=== PATIENT | male | born 1995 | race Caucasian/White ===

== ENCOUNTER 2017-04-01 19:19 | Emergency (ER) | payer OTHER ==
[~2017-04-01] VITALS: Ht 190.5 cm; Wt 74.8 kg
== END 2017-04-01 21:24 | disposition home or self-care (01) ==
LOC: ED 19:19
PROC: 0HQFXZZ Repair Right Hand Skin, External Approach (ICD-10-PCS; principal; 2017-04-01)
DX: S61.011A Laceration without foreign body of right thumb without damage to nail, initial encounter (principal); J45.909 Unspecified asthma, uncomplicated; Z87.891 Personal history of nicotine dependence; W45.8XXA Other foreign body or object entering through skin, initial encounter; Y92.69 Other specified industrial and construction area as the place of occurrence of the external cause; Y99.0 Civilian activity done for income or pay
CPT/HCPCS: 12001; 99282

== ENCOUNTER 2019-02-05 17:48 | Emergency (ER) | payer OTHER ==
[~2019-02-05] VITALS: Ht 190.5 cm; Wt 76.2 kg
== END 2019-02-05 19:34 | disposition home or self-care (01) ==
LOC: ED 17:48
DX: S86.012A Strain of left Achilles tendon, initial encounter (principal); S80.02XA Contusion of left knee, initial encounter; Z87.891 Personal history of nicotine dependence; V29.9XXA Motorcycle rider (driver) (passenger) injured in unspecified traffic accident, initial encounter
CPT/HCPCS: 73560; 99283

== ENCOUNTER 2020-03-15 01:56 | Emergency (ER) | payer BC ==
[~2020-03-15] VITALS: Ht 190.5 cm; Wt 81.7 kg
[2020-03-15] MEDS ORDERED: VENTOLIN HFA18 GM INH (02:24)
[2020-03-15] MEDS ORDERED: ACYCLOVIR800 MG PO (03:32)
== END 2020-03-15 03:56 | disposition home or self-care (01) ==
LOC: ED 01:56
DX: L98.9 Disorder of the skin and subcutaneous tissue, unspecified (principal); J45.909 Unspecified asthma, uncomplicated; F17.200 Nicotine dependence, unspecified, uncomplicated
CPT/HCPCS: 81001; 87529; 99283

== ENCOUNTER 2024-06-22 15:13 | Emergency (ER) | payer OTHER ==
[~2024-06-22] VITALS: Ht 190.5 cm; Wt 80.3 kg
[~2024-06-22 15:13] MED LIST: ACYCLOVIR800 MG PO; VENTOLIN HFA18 GM INH
[2024-06-22 20:05] VITALS: BP 130/59
== END 2024-06-22 20:05 | disposition home or self-care (01) ==
LOC: ED 15:13
DX: K40.90 Unilateral inguinal hernia, without obstruction or gangrene, not specified as recurrent (principal); F17.200 Nicotine dependence, unspecified, uncomplicated
CPT/HCPCS: 99283

== ENCOUNTER 2024-10-12 07:47 | Day surgery (SDC) | payer OTHER ==
[2024-10-08 08:41] VITALS: BP 120/72
[~2024-10-12] VITALS: Ht 190.5 cm; Wt 81.8 kg
[~2024-10-12 07:47] MED LIST changes: +CEFAZOLIN SODIUM 2 GM/20 ML SYR IV SCH; +HEParin SOD (PORCINE) 5,000 UNIT/ML SDV SUB-Q SCH; +IBLOOD GLUCOSE TEST STRIP 1 EA TEST VI PRN; +LACTATED RINGER'S 1,000 ML IV SCH; +LIDOCAINE HCL 1% 5 ML SDV INJ ONE
[2024-10-12 08:05] VITALS: BP 131/80
[2024-10-12] MEDS ORDERED: MIDAZOLAM HCL 2 MG/2 ML VIAL ONE (08:49)
[2024-10-12] MEDS ORDERED: propofoL 200 MG/20 ML VIAL ONE (08:49)
[2024-10-12] MEDS ORDERED: Ropivacaine HCl 0.5% 30 ML VIAL ONE (08:49)
[2024-10-12] MEDS ORDERED: ondansetron HCL 4 MG/2 ML VIAL ONE (08:49)
[2024-10-12] MEDS ORDERED: ACETAMINOPHEN 1,000 MG/100 ML VIAL ONE (08:49)
[2024-10-12] MEDS ORDERED: DEXAMETHASONE SOD PHOS 4 MG/ML VIAL ONE (08:49)
[2024-10-12] MEDS ORDERED: LIDOCAINE HCL 2% 20 MG/ML VIAL INJ ONE (08:50)
[2024-10-12] MEDS ORDERED: fentaNYL citrate 100 MCG/2 ML VIAL ONE (08:50)
[2024-10-12] MEDS ORDERED: SODIUM CHLORIDE 0.9% 20 ML IV ONE (08:52)
[2024-10-12] MEDS ORDERED: KETOROLAC TROMETHAMINE 30 MG/ML VIAL ONE (08:55)
[2024-10-12] MEDS ORDERED: PROCHLORPERAZINE EDISYLATE 10 MG/2 ML VIAL IV PRN (09:45)
[2024-10-12] MEDS ORDERED: IBLOOD GLUCOSE TEST STRIP 1 EA TEST VI PRN (09:45)
[2024-10-12] MEDS ORDERED: ondansetron HCL 4 MG/2 ML VIAL IV PRN (09:45)
[2024-10-12] MEDS ORDERED: NALOXONE HCL 0.4 MG SYR IV PRN ×2 (09:45→11:30)
[2024-10-12] MEDS ORDERED: fentaNYL citrate 50 MCG/ML SDV IV PRN (09:45)
[2024-10-12] MEDS ORDERED: HYDROmorphone HCL 1 MG/ML SYR IV PRN (09:45)
[2024-10-12] MEDS ORDERED: droPERidol 5 MG/2 ML VIAL IV PRN (09:45)
[2024-10-12] MEDS ORDERED: LACTATED RINGER'S 1,000 ML IV ONE (10:16)
--- NOTE | 2024-10-12 11:24 | NUR ---
10/12/24 1124 Rita Soliz 1106-PT ARRIVES TO PACU VIA STRETCHER, PT NOT RESPONSIVE TO NOXIOUS STIMULI, OPA IN PLACE, VSS ON 6L VIA MASK, RR EVEN AND UNLABORED. 1120-PT AWAKENS TO TACTILE AND VERBAL STIMULI, OPA REMOVED AND TITRATED TO RA, VS REMAIN STABLE. PT FALLS BACK TO SLEEP EASILY, RR EVEN AND UNLABORED.
[2024-10-12] MEDS ORDERED: OXYCODONE/APAP 7.5/325 TAB PO PRN (11:30)
[2024-10-12] MEDS ORDERED: ACETAMINOPHEN 500 MG TAB PO PRN (11:30)
[2024-10-12] MEDS ORDERED: IBUPROFEN 600 MG TAB PO PRN (11:30)
[2024-10-12] MEDS ORDERED: LACTATED RINGER'S 1,000 ML IV SCH (11:30)
[2024-10-12] MEDS ORDERED: IBUPROFEN600 MG PO (11:33)
[2024-10-12] MEDS ORDERED: OXYCODON-ACETA1 EAC2 PO (11:34)
[2024-10-12] MEDS ORDERED: ACETAMINOPHEN500 MG PO (11:34)
[2024-10-12 11:42] VITALS: BP 136/81
--- NOTE | 2024-10-12 11:42 | NUR ---
PT ARRIVED BACK TO DS ON RA, AAOX3, AND ANSWERING QUESTIONS APPROPRIATELY. REPORT RECEIVED FROM [facility] AND SURGICAL SITE VISUALIZED WITH THE [facility] WELL. NOTED SURGICAL DRSG TO R MONS PUBIS/GROIN AREA. DRSG HAS SMALL AMT OF SHADOWING IN CENTER OF DRSG AND SMALL AMT OF SANGUINOUS DRAINAGE NEAR MIDDLE OF SUPERIOR BORDER OF DRSG. DRSG REMAINS FIRMLY INTACT. PT DENIES NAUSEA WHEN ASKED. PT REPORTS TENDERNESS AT SURGICAL SITE. WHEN ASKED TO RATE HIS PAIN, HE RATES IT 1/10. PT REPORTS THIS TO BE TOLERABLE AND DECLINES NEED FOR FURTHER PAIN MANAGEMENT INTERVENTION AT THIS TIME. IV SITE ASSESSED. VS TAKEN. PT PROVIDED W/APPLESAUCE, SHERITA CRACKERS, AND ICE WATER. ALL QUESTIONS ANSWERED. BED IN LOW POSITION, WHEELS LOCKED, BILAT RAILS IN PLACE FOR SAFETY. CALL LIGHT WITHIN PT REACH. HOB ELEVATED TO APPROX 60 DEGREES AT PT REQUEST TO FACILITATE EATING AND DRINKING.
[2024-10-12 12:42] VITALS: BP 128/67
--- NOTE | 2024-10-12 12:42 | NUR ---
INTO PTS ROOM FOR ROUTINE REASSESSMENT. VS TAKEN. IV SITE ASSESSED. PT CONT TO DENY NAUSEA WHEN ASKED. PT ATE ALL SNACKS PROVIDED AND DRANK ALL HIS ICE WATER. PT REPORTS NO INCREASE IN PAIN AND CONT TO REPORT PAIN AT 1/10 AND DESCRIBES PAIN "A LITTLE TENDER". PT DENIES NEED FOR ANY PAIN MEDICATION OR PAIN INTERVENTIONS AT THIS TIME. SURGICAL SITE OBSERVED AND NOTED SLIGHT INCREASE IN SHADOWING IN CENTER OF DRESSING. AREA IS APPROX THE SIZE OF A DIME. DRSG REMAINS FIRMLY INTACT. DISCUSSED WITH PT USING HIS HAND TO PROVIDE SUPPORT TO SURGICAL SITE WITH POSITION CHANGES AND TRANSFERS. PT VERBALIZED AND DEMONSTRATED UNDERSTANDING. ALL QUESTIONS ANSWERED. PT AGREEABLE TO USE RESTROOMA ND ATTEMPT VOIDING. IV SL'D. PT ASSISTED TO SITTING POSITION ON EOB AND THEN AMBULATED DOWN MARTINEZ TO RESTROOM WITH RN SUPERVISION FOR SAFETY. GAIT APPEARS STEADY. PT DENIES ANY INCREASE IN PAIN WITH AMBULATION OR POSITION CHANGE.
--- NOTE | 2024-10-12 12:50 | NUR ---
PT BACK TO ROOM AFTER VOIDING APPROX 250 ML OF CLR, YELLOW URINE. SURGICAL SITE OBSERVED POST-AMBULATION AND W/O ANY INCREASED SHADOWING/DRAINAGE OBSERVED ON BANDAGE. PT DENIES ANY INCREASED PAIN. PT SITTING ON EOB WITH PERSONAL BELONGINGS AND CALL LIGHT WITHIN REACH. PT DRESSING FOR DC.
--- NOTE | 2024-10-12 12:55 | NUR ---
[facility] CALLED. THEY REPORT THEY ARE ON THEIR WAY.
--- NOTE | 2024-10-12 13:05 | NUR ---
1300-INTO PTS ROOM FOR DC EDUCATION. PT PROVIDED VERBAL AND WRITTEN INSTRUCTIONS. ALL QUESTIONS ANSWERED. PT AWARE HE NEEDS TO CALL AND SCHEDULE HIS POST-OP APPT ON TUESDAY MORNING WITH [facility] OFFICE FOR 4 WEEKS +/-. PT VERBALIZED UNDERSTANDING. 1305-IV REMOVED. TIP APPEARS INTACT. PRESSURE DRSG APPLIED W/GAUZE AND COBAN.
--- NOTE | 2024-10-12 13:10 | NUR ---
PT DISCHARGED FROM DS VIA WC TO PASSENGER SIDE OF [id number] VEHICLE. ALL PERSONAL BELONINGS TAKEN WITH PT.
[2024-10-12] MEDS ORDERED: SEVOFLURANE 250 ML BTL INH ONE (16:16)
--- NOTE | 2024-10-13 12:34 | OR ---
[facility] [address] [place], [place] [address] Signed DATE OF OPERATION: 10/12/2024 SURGEON: Roman Gibbons MD PREOPERATIVE DIAGNOSIS: Right inguinal hernia. POSTOPERATIVE DIAGNOSIS: Right indirect inguinal hernia with minimal ring redundancy. PROCEDURE: Repair of right inguinal hernia including high excision and ligation of hernia sac and plication of internal ring and floor without implantation of mesh. ANESTHESIA: General LMA, Yunior Beatty CRNA; preoperative ilioinguinal nerve block and local 0.25% Marcaine with epinephrine 7 mL. 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 He was confirmed to have a right groin mass consistent with hernia after evaluation in the emergency room on June 22, 2024. He has had no abdominal pain, urinary outlet obstructive symptoms, chronic cough or constipation. He has a reducible inguinal hernia which was easily identified. He is admitted at this time to undergo repair of this work-related hernia, understands the risk of bleeding, infection, and recurrence. FINDINGS: Found was an indirect hernia sac that was moderate in size. There was laxity of the internal ring. He did not have disruption of the floor itself. Appropriate operation included high ligation and excision of the sac with plication of the internal ring and additionally the floor itself without the implantation of mesh. DESCRIPTION OF PROCEDURE: The patient was brought to the operating room, given a general LMA type anesthetic. He had been given an ilioinguinal nerve block preoperatively. The lower abdomen was clipped and prepared with a chlorhexidine solution and draped sterilely. A small incision was made cephalad to the right pubic tubercle and dissection carried through the subcutaneous tissue with electrocautery. The external oblique was identified and Electronically Signed By: ROMAN GIBBONS MD 10/13/24 1234 PATIENT NAME: LIZETTE HARDEN OPERATIVE REPORT DATE OF : [birth year] REPORT #: [id number] PHYSICIAN: ROMAN GIBBONS MD PCP: GIOVANNY RODRIGUEZ MD REPORT IS CONFIDENTIAL AND NOT TO BE RELEASED WITHOUT AUTHORIZATION [facility] [address], [place] [address] Signed incised along its fibers revealing the underlying cord. The external oblique fibers were and secured with hemostats and the ilioinguinal nerve branch freed from the cremasteric muscle fibers with sharp dissection and reflected around the external oblique. The cord was then mobilized from the floor. The cord itself had a bulky appearance proximally and there was no sign of direct defect in the floor of the canal, though some weakening of the internal ring was noted. The hernia sac was dissected free from the cord after circumferential transection of the cremasteric muscle fibers with electrocautery. Meticulous care was maintained to free the sac from the cord without causing harm to the cord structures proper. It appeared that the hernia sac somewhat enveloped the cord. Once the hernia sac was freed from the cord, it was incised and opened and internal inspection showed no sign of hollow viscus or other issue. The base of the hernia sac was secured with 2-0 silk suture doubly applied amputating the redundant hernia sac. Examination of the floor showed to be largely intact, although there was laxity at the internal ring. The repair was more appropriately performed by primary repair rather than implantation of mesh. 2-0 silk suture was used to secure the shelving edge of Poupart's ligament to the tendon of the transversus abdominis. Closure extended from the pubic tubercle up to the internal ring, maintaining a reasonable amount of space between the ring and the cord itself. 7 mL of 0.25% Marcaine with epinephrine was injected locally. The cord was replaced in the canal as was the ilioinguinal nerve. The external oblique fascia was somewhat attenuated and edematous and was reapproximated in the lateral aspect with 2-0 Vicryl. Jose's layer was reapproximated with interrupted 2-0 Vicryl. The skin was closed with a running subcuticular 3-0 Vicryl. Steri-Strips were applied as was the Acticoat dressing. The patient was ultimately extubated and transferred to recovery room in good condition having suffered no complications. Sponge, needle, and instrument counts were reported as correct x3. Roman Gibbons MD /MODL /[id number] cc: Giovanny Rodriguez MD Electronically Signed By: ROMAN GIBBONS MD 10/13/24 1234 PATIENT NAME: LIZETTE HARDEN OPERATIVE REPORT DATE OF : [birth year] REPORT #: [id number] PHYSICIAN: ROMAN GIBBONS MD PCP: GIOVANNY RODRIGUEZ MD REPORT IS CONFIDENTIAL AND NOT TO BE RELEASED WITHOUT AUTHORIZATION [facility] [address] [facility] [place], [place] [address] Signed Copies: GIOVANNY RODRIGUEZ MD ~ Electronically Signed By: ROMAN GIBBONS MD 10/13/24 1234 PATIENT NAME: LIZETTE HARDEN OPERATIVE REPORT DATE OF : [birth year] REPORT #: [id number] PHYSICIAN: ROMAN GIBBONS MD PCP: GIOVANNY RODRIGUEZ MD REPORT IS CONFIDENTIAL AND NOT TO BE RELEASED WITHOUT AUTHORIZATION
--- NOTE | 2024-10-16 15:24 | PATH ---
[facility] [address] [place], [place] [address] Signed SPECIMEN(S): A RIGHT INDIRECT HERNIA SAC SPECIMEN(S): B RIGHT CORD LIPOMA SPECIMEN SOURCE: A. RIGHT INDIRECT HERNIA SAC B. RIGHT CORD LIPOMA CLINICAL HISTORY: Right inguinal hernia. FINAL PATHOLOGIC DIAGNOSIS: A. Right indirect hernia sac: - Benign soft tissue consistent with clinical hernia sac. - Negative for atypical features. B. 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 JVR:clv MICROSCOPIC EXAMINATION: Histologic sections of all submitted blocks are examined by light microscopy. These findings, together with the gross examination, support the pathologic diagnosis. GROSS DESCRIPTION: A. The specimen, labeled and designated "Cristhian, Edison, " and designated on the requisition "right indirect hernia sac," is received in formalin and consists of 4.6 x 2.1 x 0.8 cm membranous tissue fragment. One surface is violaceous smooth and glistening. The opposite is pink-red and slightly roughened. Specimen is sectioned and client representative sections are submitted in cassette A1. B. The specimen, labeled and designated "Cristhian, J, " and designated on the requisition "right cord lipoma," is received in formalin and consists of a four gram portion of yellow-sidhu adipose tissue that is 5.2 x 2.2 x 0.9 cm. The specimen is surfaced by a transparent delicate membranous tissue. The tissue is inked and serially sectioned to reveal a yellow homogeneous cut surface. Office Engineer sections are submitted cassette B1. FB (under the direct supervision of a pathologist) The Gross Description was prepared using a voice recognition system. The report was reviewed for accuracy; however, sound-alike word errors, addition and/or PATIENT NAME: LIZETTE HARDEN PATHOLOGY DATE OF : [birth year] REPORT #: [id number] PHYSICIAN: LUI RAMSAY PCP: COLE MARCIAL MD REPORT IS CONFIDENTIAL AND NOT TO BE RELEASED WITHOUT AUTHORIZATION [facility] [address] [facility] [place], [place] [address] Signed deletions may occur. If there is any question about this report, please contact Client Services. PERFORMING LABORATORY: Technical component was performed by [facility], [address] [place] [address] (CLIA# [id number]). Professional interpretation was performed by [facility], [address] [place] [id number] (CLIA#: [id number]). Diagnostician: Gabe Quick MD Pathologist Electronically Signed 10/16/2024 Copies: ~ PATIENT NAME: LIZETTE HARDEN PATHOLOGY DATE OF : [birth year] REPORT #: [id number] PHYSICIAN: LUI PATHOLOGY PCP: COLE MARCIAL MD REPORT IS CONFIDENTIAL AND NOT TO BE RELEASED WITHOUT AUTHORIZATION
== END 2024-10-12 13:10 | disposition home or self-care (01) ==
LOC: DS 07:47
PROVIDERS: ATTEND Surgery
PROC: 0YQ50ZZ Repair Right Inguinal Region, Open Approach (ICD-10-PCS; principal; 2024-10-12 09:35)
DX: K40.90 Unilateral inguinal hernia, without obstruction or gangrene, not specified as recurrent (principal); G89.18 Other acute postprocedural pain; J45.909 Unspecified asthma, uncomplicated; Z87.891 Personal history of nicotine dependence
CPT/HCPCS: 00830; 64425; 76942; J0131; J0690; J1100; J1644; J1885; J2250; J2405; J2704; J2795; J3010; J7121